=== PATIENT | female | born 1965 | race Caucasian/White ===

== ENCOUNTER 2018-04-21 12:09 | Emergency (ER) | END 2018-04-21 13:08 | disposition home or self-care (01) ==

== ENCOUNTER 2019-02-16 15:33 | Emergency (ER) | payer OTHER ==
[~2019-02-16] VITALS: Ht 170.2 cm; Wt 57.1 kg
[~2019-02-16 15:33] MED LIST: ACET500C5 PO; BACITUD TOP
[2019-02-16 15:35] VITALS: BP 149/87; PULSE 85; RESP 19; Ht 170.2 cm; Wt 57.1 kg
[2019-02-16] MEDS ORDERED: CEPH-443 PO (15:43)
[2019-02-16] MEDS ORDERED: MUPI22OI2 TOP (15:43)
[2019-02-16] MEDS ORDERED: SULF1TAB31 PO (15:43)
--- NOTE | 2019-02-16 16:54 | ERD ---
ER Documentation Chief Complaint Chief Complaint Bilat hand pain and sores x 1 week HPI 53-year-old female presenting with bilateral hand pain and sores times 1 week. Patient states that she was moving and cleaning with abrasive supplies. She is right-hand dominant. Up-to-date on tetanus. Denies medical problems. Allergic to penicillin. Surgical history of eye surgery. Social history smokes 1 cigarette a day. Drug use denies ROS All systems reviewed and are negative except as per history of present illness. Medications Home Meds Active Scripts Sulfamethoxazole/Trimethoprim* (Bactrim Ds* Tablet) 1 Each Tablet, 1 TAB PO BID, #14 TAB Prov:CHERELLE PAUL PA-C 02/16/19 Cephalexin* (Keflex*) 500 Mg Capsule, 500 MG PO QID for 7 Days, CAP Prov:CHERELLE PAUL PA-C 02/16/19 Mupirocin* (Bactroban*) 2% -22 Gram Oint...g., 1 APPLIC TOP BID for 7 Days, #1 EA Prov:CHERELLE PAUL PA-C 02/16/19 Bacitracin* (Bacitracin Oint (UD)*) 1 Applic Oint, 1 APPLIC TOP ONCE, #7 PKT APPLY TO Prov:JORDIN ZAMORA PA-C 04/21/18 Acetaminophen* (Tylophen*) 500 Mg Capsule, 1 CAP PO Q6H PRN for PAIN AND OR ELEVATED TEMP, #30 CAP Prov:JORDIN ZAMORA PA-C 04/21/18 Allergies Allergies: Coded Allergies: Penicillins (Unverified Allergy, Unknown, 04/21/18) FmHx Family History: No diabetes, No coronary disease, No other Physical Exam Vitals Vital Signs Date Temp Pulse Resp B/P (MAP) Pulse Ox O2 O2 Flow FiO2 Time Delivery Rate 02/16/19 97.8 85 19 149/87 95 15:35 (107) Physical Exam GENERAL: The patient is well-appearing, well-nourished, in no acute distress CHEST: Clear to auscultation bilaterally. There are no rales, wheezes or rhonchi. HEART: Regular rate and rhythm. No murmurs, clicks, rubs or gallops. EXTREMITIES: Equal pulses bilaterally. There is no peripheral clubbing, cyanosis or edema. No focal swelling or erythema. Full range of motion. Grossly neurovascularly intact. NEUROLOGIC: Motor strength in all 4 extremities with 5 out of 5 strength. Sensation grossly intact. SKIN: Skin sore noted to the lateral right hand at the palm. Erythema and swelling with purulent discharge noted the base of the left thumb. Procedures/MDM ER course: Wound cleaned with normal saline and dressed with bacitracin ointment. MDM: 53-year-old female presenting with hand wounds. Patient is discharged with antibiotic cream and oral antibiotics. I have low suspicion for deep tracking infection. Patient is discharged with stricter precautions and supportive medications. All questions answered at discharge Departure Diagnosis: Primary Impression: Skin sore Condition: Stable Patient Instructions: Skin Ulcer, Simple Referrals: [facility] YOU HAVE RECEIVED A MEDICAL SCREENING EXAM AND THE RESULTS INDICATE THAT YOU DO NOT HAVE A CONDITION THAT REQUIRES URGENT TREATMENT IN THE EMERGENCY DEPARTMENT. FURTHER EVALUATION AND TREATMENT OF YOUR CONDITION CAN WAIT UNTIL YOU ARE SEEN IN YOUR DOCTORS OFFICE WITHIN THE NEXT 1-2 DAYS. IT IS YOUR RESPONSIBILITY TO MAKE AN APPOINTMENT FOR FOLOW-UP CARE. IF YOU HAVE A PRIMARY DOCTOR --you should call your primary doctor and schedule an appointment IF YOU DO NOT HAVE A PRIMARY DOCTOR YOU CAN CALL OUR PHYSICIAN REFERRAL HOTLINE AT IF YOU CAN NOT AFFORD TO SEE A PHYSICIAN YOU CAN CHOSE FROM THE FOLLOWING [facility] [address] [facility]. [facility] [address] [facility] [facility] [address] [facility] [address] [facility]. [facility] [address] [facility]. [facility] [address] Additional Instructions: FOLLOW UP WITH YOUR PRIMARY CARE PHYSICIAN TOMORROW.Return to this facility if you are not improving as expected. CHERELLE PAUL PA-C Feb 16, 2019 16:54
== END 2019-02-16 17:06 | disposition home or self-care (01) ==
LOC: E/R 15:33
DX: L98.9 Disorder of the skin and subcutaneous tissue, unspecified (principal)
CPT/HCPCS: 99283